=== PATIENT | female | born 1975 | race American Indian/Alaskan Native ===

== ENCOUNTER 2018-11-10 07:40 | Emergency (ER) | payer BC ==
[2018-11-10 07:59] VITALS: BP 126/79
--- NOTE | 2018-11-10 09:30 | Emergency Department Report ---
ED Female HPI - General Chief complaint: Vaginal Bleeding Stated complaint: POS MISCARRIAGE/ABD PAIN Time Seen by Provider: 11/10/18 08:34 Source: patient Mode of arrival: Ambulatory Limitations: No Limitations - History of Present Illness Initial comments: Patient is a 43-year-old 003 who presents to ED complaining of vaginal bleeding that began 2 days ago. Patient states that bleeding began with vaginal spotting and os, and has severe since then. Patient states that she took a test at home that was positive. Patient states last menstrual period was September. She admits some low pelvic cramping but no nausea, vomiting, dysur ia Complaint: vaginal bleeding - Related Data Previous Rx's Medication Instructions Recorded Last Taken Type Acetaminophen/Codeine [Tylenol 1 tab PO Q6H #12 tab 11/10/18 Unknown Rx /Codeine # 3 tab] Ibuprofen [Motrin] 800 mg PO Q8HR #30 tablet 11/10/18 Unknown Rx Allergies Allergy/AdvReac Type Severity Reaction Status Date / Time Penicillins Allergy Hives Verified 11/10/18 07:44 ED Review of Systems ROS: Stated complaint: POS MISCARRIAGE/ABD PAIN Other details as noted in HPI Comment: All other systems reviewed and negative ED Past Medical Hx - Past Medical History Previous Medical History?: No - Surgical History Past Surgical History?: Yes Additional Surgical History: C section, hernia repair, carpal tunnel release on both wrist. - Social History Smoking Status: Never Smoker Substance Use Type: None - Medications Home Medications: Home Medications Medication Instructions Recorded Confirmed Last Taken Type Acetaminophen/Codeine [Tylenol 1 tab PO Q6H #12 tab 11/10/18 Unknown Rx /Codeine # 3 tab] Ibuprofen [Motrin] 800 mg PO Q8HR #30 tablet 11/10/18 Unknown Rx ED Physical Exam - General Limitations: No Limitations General appearance: alert, in no apparent distress - Head Head exam: Present: atraumatic, normocephalic - Eye Eye exam: Present: normal appearance - ENT ENT exam: Present: mucous membranes moist - Neck Neck exam: Present: normal inspection - Respiratory Respiratory exam: Present: normal lung sounds bilaterally. Absent: respiratory distress - Cardiovascular Cardiovascular Exam: Present: regular rate, normal rhythm. Absent: systolic murmur, diastolic murmur, rubs, gallop - GI/Abdominal GI/Abdominal exam: Present: soft, tenderness (mildly tender to low pelvic region), normal bowel sounds. Absent: distended, mass - Extremities Exam Extremities exam: Present: normal inspection - Back Exam Back exam: Present: normal inspection - Neurological Exam Neurological exam: Present: alert, oriented X3 - Psychiatric Psychiatric exam: Present: normal affect, normal mood - Skin Skin exam: Present: warm, dry, intact, normal color. Absent: rash ED Course Vital Signs 11/10/18 11/10/18 07:55 10:55 Temperature 97.8 F Pulse Rate 85 Respiratory 20 17 Rate Blood Pressure 126/79 Blood Pressure 126/79 [Left] O2 Sat by Pulse 100 Oximetry ED Medical Decision Making - Lab Data Result diagrams: 11/10/18 08:31 - Radiology Data Radiology results: report reviewed, image reviewed Findings: Uterus measures 13.1 x 7.5 x 9.2 cm. Endometrial thickness 25 mm. No intrauterine gestation is seen. Right ovary 2.9 x 1.6 x 2.4 cm. Complex cyst measuring 2 cm right ovary. Left ovary 2.4 x 1.1 x 2.2 cm. No mass. No fluid in the cul-de-sac. Impression: Thick irregular endometrium. No intrauterine gestation. Complex cyst right ovary. Transcribed By: PTP Dictated By: IRLANDA BARAHONA MD Electronically Authenticated By: IRLANDA BARAHONA MD Signed Date/Time: 11/10/18 1053 - Medical Decision Making 29-year-old female presents to ED with completed ED course: Pt received ultra sound, CBC, urinalysis, test and quantitative ED All labs within normal limits, quantitative elevated as 1233 Discussed follow-up with [facility] for serial quant level checks. Vital signs normalized patient is in no acute distress. I discussed with the patient if follow-up with her [facility]. I discussed all labs and ultrasound findings with the patient. I discussed with the patient that he if bleeding worsens or new symptoms develop to return to ED immediately Critical care attestation.: If time is entered above; I have spent that time in minutes in the direct care of this critically ill patient, excluding procedure time. ED Disposition Clinical Impression: Spontaneous , Complete without complication Disposition: DC-01 TO HOME OR SELFCARE Is pt being admited?: No Does the pt Need Aspirin: No Condition: Stable Instructions: Spontaneous Miscarriage (ED) Additional Instructions: Make sure to follow up with the [facility] as discussed. Take all your medications as you've been prescribed. If you have any worsening symptoms or develop new symptoms please return to ED immediately. Prescriptions: Ibuprofen [Motrin] 800 mg PO Q8HR #30 tablet Acetaminophen/Codeine [Tylenol /Codeine # 3 tab] 1 tab PO Q6H #12 tab Referrals: FATOUMATA GUILLORY MD [Primary Care Provider] - 3-5 Days [facility] [Provider Group] - 3-5 Days [facility] [Provider Group] - 3-5 Days Forms: Work/School Release Form(ED) Time of Disposition: 11:31
[2018-11-10] MEDS ORDERED: TYLENOL #3 PO ONE (09:56)
[2018-11-10 09:57] LABS: Hematocrit 31.2 % (30.3-42.9); Hemoglobin 10.3 gm/dl (10.1-14.3); Mean Platelet Volume 8.5 fl (6-12); Red Blood Count 3.95 M/mm3 (3.65-5.03); Red Cell Distribution Width 14.8 % (13.2-15.2)
--- NOTE | 2018-11-10 11:13 | Ultrasound Report ---
Pelvic and transvaginal sonography: History: Vaginal bleeding. Findings: Uterus measures 13.1 x 7.5 x 9.2 cm. Endometrial thickness 25 mm. No intrauterine gestation is seen. Right ovary 2.9 x 1.6 x 2.4 cm. Complex cyst measuring 2 cm right ovary. Left ovary 2.4 x 1.1 x 2.2 cm. No mass. No fluid in the cul-de-sac. Impression: Thick irregular endometrium. No intrauterine gestation. Complex cyst right ovary.
== END 2018-11-10 11:44 | disposition home or self-care (01) ==
LOC: ED 07:40
DX: O03.9 Complete or unspecified spontaneous abortion without complication (principal)
CPT/HCPCS: 36415; 76801; 76817; 84702; 85027; 86900; 86901

== ENCOUNTER 2019-01-15 21:54 | Emergency (ER) | payer BC ==
[2019-01-16] MEDS ORDERED: TYLENOL PO ONE (03:14)
[2019-01-16] MEDS ORDERED: ZOFRAN ODT PO ONE (03:14)
[2019-01-16 03:27] LABS: Basophils # (Auto) 0.1 K/mm3 (0.0-0.1); Basophils % (Auto) 0.7 % (0.0-1.8); Eosinophils # (Auto) 0.7 K/mm3 (0.0-0.4); Eosinophils % (Auto) 9.2 % (0.0-4.3); Hematocrit 29.7 % (30.3-42.9); Hemoglobin 9.6 gm/dl (10.1-14.3); Lymphocytes # (Auto) 3.2 K/mm3 (1.2-5.4); Lymphocytes % (Auto) 39.8 % (13.4-35.0); Mean Corpuscular HGB Conc 32 % (30-34); Mean Corpuscular Volume 78 fl (79-97); Monocytes # (Auto) 0.6 K/mm3 (0.0-0.8); Monocytes % (Auto) 7.7 % (0.0-7.3); Platelet Count 411 K/mm3 (140-440); Red Blood Count 3.83 M/mm3 (3.65-5.03); Red Cell Distribution Width 15.4 % (13.2-15.2)
[2019-01-16 03:54] LABS: Bilirubin,Urine NEG (Negative); Blood,Urine LG (Negative); Color,Urine Yellow (Yellow); Urobilinogen,Urine < 2.0 mg/dL (<2.0)
[2019-01-16 03:58] LABS: Alanine Aminotransferase 12 units/L (7-56); Albumin 3.7 g/dL (3.9-5); BUN/Creatinine Ratio 11; Blood Urea Nitrogen 8 mg/dL (7-17); Calcium 8.7 mg/dL (8.4-10.2); Hemolysis Index 0
--- NOTE | 2019-01-16 04:21 | Emergency Department Report ---
ED Female HPI - General Chief complaint: Vaginal Bleeding Stated complaint: HEAVY VAGINAL BLEEDING Time Seen by Provider: 01/16/19 03:10 Source: patient Mode of arrival: Ambulatory Limitations: No Limitations - History of Present Illness Initial comments: Patient is a A4 AA with a history of chronic dysmenorrhea and who had a miscarriage 2 months ago, and just started her menstrual cycle 2 days ago presents to the ED with complaint of acute onset persistent severe suprapubic pain and history of vaginal bleeding with clots for the last 2 days. Patient states that in the last 8 hours she is on multiple blood clots and heavy bleeding, and has had to use plenty of pads. Patient states that when she sobered clots she decided to come to the ED to ascertain whether she was again or not. Patient states that she does not use any contraceptives. Patient denies fever, chills, nausea, vomiting, diarrhea, dizziness, lightheadedness, back pain, chest pain or shortness of breath, vaginal discharge or urinary frequency and urgency for dysuria. MD Complaint: vaginal bleeding, pelvic pain (suprapubic), other (dysmenorrhea) -: Sudden, days(s) (2) Location: suprapubic Radiation: non-radiating, suprapubic Severity: moderate Severity scale (0 -10): 4 Quality: cramping, sharp Consistency: constant Improves with: none Worsens with: urination, menstrual period Are you Now?: No Last Menstrual Period: 01/14/19 EDC: 10/21/19 Associated Symptoms: vaginal bleeding, abdominal pain (suprapubic). denies: vaginal discharge, nausea/vomiting, fever/chills, headaches, loss of appetite, dysuria, hematuria, rash, seizure, shortness of breath, syncope, weakness - Related Data Sexually active: No : 7 Para: 3 A: 4 Previous Rx's Medication Instructions Recorded Last Taken Type Acetaminophen/Codeine [Tylenol 1 tab PO Q6H #12 tab 11/10/18 Unknown Rx /Codeine # 3 tab] Ibuprofen [Motrin] 800 mg PO Q8HR #30 tablet 11/10/18 Unknown Rx Acetaminophen/Codeine [Tylenol 1 tab PO Q6H PRN #15 tab 01/16/19 Unknown Rx /Codeine # 3 tab] Naproxen 500 mg PO Q12H PRN #20 tablet 01/16/19 Unknown Rx Allergies Allergy/AdvReac Type Severity Reaction Status Date / Time Penicillins Allergy Hives Verified 11/10/18 07:44 ED Review of Systems ROS: Stated complaint: HEAVY VAGINAL BLEEDING Other details as noted in HPI Comment: All other systems reviewed and negative Constitutional: no symptoms reported, see HPI. denies: chills, diaphoresis, fever, malaise, weakness Eyes: as per HPI. denies: eye pain, eye discharge, vision change ENT: as per HPI. denies: ear pain, throat pain, dental pain, hearing loss, epistaxis, congestion Respiratory: no symptoms reported, see HPI. denies: cough, shortness of breath, SOB with exertion, SOB at rest, wheezing Cardiovascular: as per HPI. denies: chest pain, palpitations, dyspnea on exertion, orthopnea, edema, syncope, paroxysmal nocturnal dyspnea Endocrine: no symptoms reported, see HPI. denies: excessive sweating, flushing, increased hunger, increased thirst, increased urine, unexplained weight gain, unexplained weight loss Gastrointestinal: as per HPI, abdominal pain (suprapubic ). denies: nausea, vomiting, diarrhea, constipation, hematemesis, hematochezia Genitourinary: as per HPI, urgency. denies: frequency, hematuria, discharge, abnormal menses, dyspareunia, other Musculoskeletal: as per HPI, back pain. denies: joint swelling, arthralgia, myalgia Skin: as per HPI. denies: rash, lesions, change in color, change in hair/nails Neurological: as per HPI. denies: headache, weakness, numbness, paresthesias, confusion, abnormal gait, vertigo, other Psychiatric: as per HPI. denies: anxiety, depression, auditory hallucinations Hematological/Lymphatic: as per HPI ED Past Medical Hx - Past Medical History Previous Medical History?: No - Surgical History Past Surgical History?: Yes Additional Surgical History: C section, hernia repair, carpal tunnel release on both wrist. - Social History Smoking Status: Never Smoker Substance Use Type: None - Medications Home Medications: Home Medications Medication Instructions Recorded Confirmed Last Taken Type Acetaminophen/Codeine [Tylenol 1 tab PO Q6H #12 tab 11/10/18 Unknown Rx /Codeine # 3 tab] Ibuprofen [Motrin] 800 mg PO Q8HR #30 tablet 11/10/18 Unknown Rx Acetaminophen/Codeine [Tylenol 1 tab PO Q6H PRN #15 tab 01/16/19 Unknown Rx /Codeine # 3 tab] Naproxen 500 mg PO Q12H PRN #20 tablet 01/16/19 Unknown Rx ED Physical Exam - General Limitations: No Limitations General appearance: alert, in no apparent distress - Head Head exam: Present: atraumatic, normocephalic, normal inspection - Eye Eye exam: Present: normal appearance, PERRL, EOMI Pupils: Present: normal accommodation - ENT ENT exam: Present: normal exam, normal orophraynx, mucous membranes moist, TM's normal bilaterally, normal external ear exam - Neck Neck exam: Present: normal inspection. Absent: tenderness, full ROM, lymphadenopathy - Respiratory Respiratory exam: Present: normal lung sounds bilaterally. Absent: respiratory distress, wheezes, rales, rhonchi, chest wall tenderness, accessory muscle use, decreased breath sounds, prolonged expiratory - Cardiovascular Cardiovascular Exam: Present: regular rate, normal rhythm, normal heart sounds. Absent: bradycardia, tachycardia, systolic murmur, diastolic murmur - GI/Abdominal GI/Abdominal exam: Present: soft, tenderness (supraapubic). Absent: hyperactive bowel sounds, hypoactive bowel sounds, organomegaly - Extremities Exam Extremities exam: Present: normal inspection, full ROM, normal capillary refill - Back Exam Back exam: Present: normal inspection, full ROM. Absent: tenderness, CVA tenderness (R), CVA tenderness (L), muscle spasm, paraspinal tenderness, vertebral tenderness - Neurological Exam Neurological exam: Present: alert, oriented X3, CN II-XII intact, normal gait, reflexes normal - Psychiatric Psychiatric exam: Present: normal affect - Skin Skin exam: Present: warm, dry, intact, normal color ED Course Vital Signs 01/15/19 22:00 Temperature 98.1 F Pulse Rate 87 Respiratory 18 Rate Blood Pressure 122/78 O2 Sat by Pulse 100 Oximetry - Reevaluation(s) Reevaluation #1: 01/16/19 04:26 Patient is alert and oriented 3 and is not in distress. Labs were drawn and patient was treated for pain. Lab test results were reviewed and are unremarkable. Patient's symptoms are likely due to dysmenorrhea and metrorrhagia. Patient historically has not been on any control. On reevaluation, patient's pain is well controlled on medications, patient was discharged home on medications and advised to follow-up with [facility] physician in 2-3 days for reevaluation or return to the ED immediately if symptoms get worse. ED Medical Decision Making - Lab Data Result diagrams: 01/16/19 03:16 01/16/19 03:16 - Medical Decision Making Patient is alert and oriented 3 and is not in distress. Labs were drawn and patient was treated for pain. Lab test results were reviewed and are unremarkable. Patient's symptoms are likely due to dysmenorrhea and metrorrhagia. Patient historically has not been on any control. On reevaluation, patient's pain is well controlled on medications, patient was discharged home on medications and advised to follow-up with [facility] physician in 2-3 days for reevaluation or return to the ED immediately if symptoms get worse. - Differential Diagnosis Dysmenorrhea, Metrorrhagia, Acute UTI, , miscarriage Critical care attestation.: If time is entered above; I have spent that time in minutes in the direct care of this critically ill patient, excluding procedure time. ED Disposition Clinical Impression: Dysmenorrhea, Metrorrhagia, Pelvic pain Disposition: TO HOME OR SELFCARE Is pt being admited?: No Does the pt Need Aspirin: No Condition: Stable Instructions: Dysfunctional Uterine Bleeding (ED), Menorrhagia (ED), Dysmenorrhea (ED) Additional Instructions: Take medications for pain as needed with food, drink plenty of fluids and follow up with your [facility] physician within 2-3 days for reevaluation. Return to the ED immediately if symptoms get worse. Prescriptions: Naproxen 500 mg PO Q12H PRN #20 tablet PRN Reason: Pain , Severe (7-10) Acetaminophen/Codeine [Tylenol /Codeine # 3 tab] 1 tab PO Q6H PRN #15 tab PRN Reason: Pain , Severe (7-10) Referrals: FLASH ZAMBRANO MD [Primary Care Provider] - 3-5 Days Time of Disposition: 04:36 Print Language: KOREAN
[2019-01-16 04:36] VITALS: BP 168/92
== END 2019-01-16 04:36 | disposition home or self-care (01) ==
LOC: ED 21:54
DX: N94.6 Dysmenorrhea, unspecified (principal); N92.1 Excessive and frequent menstruation with irregular cycle
CPT/HCPCS: 36415; 80053; 81001; 83690; 84703; 85025; Q0162

== ENCOUNTER 2020-09-11 06:02 | Day surgery (SDC) | payer BC ==
[~2020-09-11 06:02] MED LIST: ACETAMINOPHEN 500 MG TAB PO SCH; CELECOXIB 200 MG CAP PO NR; GABAPENTIN 300 MG CAP PO NR; LACTATED RINGERS 1,000 ML IV SCH; MIDAZOLAM 2 MG/2 ML INJ IV NR; SCOPOLAMINE TRANSDERMAL PATCH 72 HR TD NR
[2020-09-11] MEDS ORDERED: LIDOCAINE (1%) 10 MG/1 ML VIAL 20 ML MDV ONE (07:13)
[2020-09-11] MEDS ORDERED: SODIUM CHLORIDE 0.9% 0 ML ONE (07:13)
[2020-09-11] MEDS ORDERED: BUPIVACAINE/PF (0.5%) 5 MG/1 ML 30 ML VIAL INFILTRATI ONE ×2 (07:13→09:24)
[2020-09-11] MEDS ORDERED: ONDANSETRON 4 MG/2 ML INJ IV PRN (07:29)
[2020-09-11] MEDS ORDERED: HYDROmorphone 1 MG/1 ML INJ IV PRN (07:29)
--- NOTE | 2020-09-11 07:39 | Anesthesia Consultation ---
Anesthesia Consult and Med Hx Date of service: 09/11/20 - Airway Anesthetic Teeth Evaluation: Good ROM Head & Neck: Adequate Mental/Hyoid Distance: Adequate Mallampati Class: Class II Intubation Access Assessment: Probably Good - Pre-Operative Health Status ASA Pre-Surgery Classification: ASA2 Proposed Anesthetic Plan: General - Central Nervous System Hx Psychiatric Problems: No - Endocrine Hx Liver Disease: Yes (gallbladder disease) - Hematic Hx Anemia: Yes - Other Systems Hx Cancer: No Hx Obesity: Yes (BMI 32.6)
--- NOTE | 2020-09-11 07:40 | Anesthesia Day of Surgery ---
Anesthesia Day of Surgery - Day of Surgery Patient Examined: Yes Patient H&P Reviewed: Yes Patient is NPO: Yes
[2020-09-11] MEDS ORDERED: HYDROmorphone 1 MG/1 ML INJ ONE (07:46)
[2020-09-11] MEDS ORDERED: propofoL 200 MG/20 ML VIAL IV ONE (07:46)
[2020-09-11] MEDS ORDERED: VANCOMYCIN/NS 1 GM/250 ML 1 GM/250 ML BAG IV NR (08:00)
[2020-09-11] MEDS ORDERED: WATER FOR IRRIG STERILE 1,500 ML BOTTLE IR ONE (09:24)
[2020-09-11] MEDS ORDERED: LIDOCAINE (1%) 10 MG/1 ML VIAL 20 ML MDV INFILTRATI ONE (09:25)
[2020-09-11] MEDS ORDERED: LIDOCAINE MPF (2%) 20 MG/1 ML VIAL 5 ML ONE (09:47)
[2020-09-11] MEDS ORDERED: ROCURONIUM 50 MG/5 ML INJ IV ONE (09:47)
[2020-09-11] MEDS ORDERED: KETOROLAC 30 MG/1 ML INJ ONE (09:50)
[2020-09-11] MEDS ORDERED: GLYCOPYRROLATE 0.4 MG/2 ML INJ ONE (09:50)
[2020-09-11] MEDS ORDERED: NEOSTIGMINE 10MG/10 ML INJ MDV ONE (09:50)
[2020-09-11] MEDS ORDERED: ONDANSETRON 4 MG/2 ML INJ ONE (09:50)
--- NOTE | 2020-09-11 10:06 | Short Stay Summary ---
Short Stay Documentation Date of service: 09/11/20 - History H&P: obtained from office - Allergies and Medications Current Medications: Allergies Penicillins Allergy (Verified 09/06/20 08:30) Hives Home Medications Medication Instructions Recorded Confirmed Last Taken Type Ferrous Sulfate [Feosol] 325 mg PO BID 09/06/20 09/06/20 Unknown History Ibuprofen [Motrin] 800 mg PO Q8HR PRN 09/06/20 09/06/20 Unknown History Active Medications Acetaminophen (Acetaminophen 500 Mg Tab) 1,000 mg PO PREOP PIERCE Stop: 09/11/20 20:00 Celecoxib (Celecoxib 200 Mg Cap) 200 mg PO PREOP NR Stop: 09/11/20 20:00 Gabapentin (Gabapentin 300 Mg Cap) 300 mg PO PREOP NR Stop: 09/11/20 20:00 Hydromorphone HCl (Hydromorphone 1 Mg/1 Ml Inj) 0.25 mg IV Q10MIN PRN PRN Reason: Pain, Moderate (4-6) Stop: 09/11/20 23:00 Lactated Ringer's (Lactated Ringers) 1,000 mls @ 100 mls/hr IV DIRECT PIERCE Stop: 09/11/20 23:59 Midazolam HCl (Midazolam 2 Mg/2 Ml Inj) 2 mg IV PREOP NR Stop: 09/11/20 20:00 Ondansetron HCl (Ondansetron 4 Mg/2 Ml Inj) 4 mg IV ONCE PRN PRN Reason: Nausea And Vomiting Stop: 09/11/20 12:00 Scopolamine (Scopolamine Transdermal Patch 72 Hr) 1 each TD PREOP NR Stop: 09/11/20 20:00 - Brief post op/procedure progress note Date of procedure: 09/11/20 Pre-op diagnosis: cholelithiasis, symptomatic Post-op diagnosis: same Procedure: laparoscopic cholecystectomy Anesthesia: GETA, local Findings: Thickened gallbladder with medium sized stone at neck Surgeon: THOR NEGRO Estimated blood loss: minimal Pathology: list (gallbladder) Specimen disposition: to lab Condition: stable - Hospital course Hospital course: Pt observed in PACU and discharged to home in stable condition. - Disposition Condition at discharge: Good Disposition: DC-01 TO HOME OR SELFCARE Short Stay Discharge Plan Activity: other (no heavy lifting more than 15 lbs for next 2 weeks) Wound: open to air, per your surgeon's advice Additional Instructions: see printed instructions Follow up with: DR SMITA [Other] - 7 Days THOR NEGRO DO [Staff Physician] - 14 Days Prescriptions: oxyCODONE /ACETAMINOPHEN [Percocet 5/325] 1 tab PO Q4HR PRN #30 tab PRN Reason: Pain , Severe (7-10)
[2020-09-11] MEDS ORDERED: oxyCODONE /ACETAMINOPHEN 5-325MG TAB PO PRN (10:14)
--- NOTE | 2020-09-11 10:42 | Operative Report ---
Operative Report Operative Report: Date of procedure: 09/11/20 Pre-op diagnosis: cholelithiasis, symptomatic Post-op diagnosis: same Procedure: laparoscopic cholecystectomy Anesthesia: GETA, local Findings: Thickened gallbladder with medium sized stone at neck Surgeon: THOR NEGRO Estimated blood loss: minimal Pathology: list (gallbladder) Specimen disposition: to lab Condition: stable Hospital course: Pt observed in PACU and discharged to home in stable condition. HPI an indication: 45-year-old female who was referred to the surgery clinic for evaluation of gallstones. The patient was found to have symptomatic cholelithiasis. All pertinent imaging and laboratory data were reviewed. It was recommended that the patient undergo cholecystectomy. All risk, benefits, alternatives to surgery were discussed with patient questions answered. Consent was obtained. Procedure in detail: The patient was identified in the preoperative area and taken back to the operating room, placed on the operating room table in supine position. After anesthesia was induced, the abdomen was prepped and draped in usual sterile fashion and timeout was performed. Local anesthetic was infiltrated into all of the skin incision sites. A daiana incision was made in the left upper quadrant at Koehler's point through which a Veress needle was inserted. The Veress needle position was confirmed using the saline drop test and the abdomen insufflated to 15 mmHg without incident. Using an 11 blade a supraumbilical incision was made and through this a 5 mm optiview trocar placed. The abdomen was then inspected and there was no underlying injury to any of the abdominal contents. The veress needle was removed. An additional 12 mm subxyphoid port, and 2, 5mm RUQ ports were then placed under direct visualization. The patient was then placed into reverse Trendelberg and tilted to the left. The gallbladder was visualized and was partially obscured by omental adhesions. The gallbladder fundus was grasped and retracted cephalad. The omental adhesions were dissected from the gallbladder using hook electrocautery. The cystic duct and artery were then carefully dissected and the critical view obtained, and the cystic duct and artery were the only two structures seen entering the gallbladder. Three clips were then placed on the proximal aspect of the cystic duct and one clip distally, and 2 clips on the cystic artery proximally and one distal. The cystic duct and cystic artery were then transected in between the clips using endoshears. The gallbladder was dissected from the liver bed using hook electrocautery. The gallbladder was mil dly thickened. The gallbladder was placed into a Endo Catch bag and removed from the abdomen via the 12mm port. The gallbladder fossa was then inspected and there was no identifiable bleeding or bile leakage. Hemostasis was ensured. The clips on the cystic duct and artery were visualized and intact. The patient was then placed into neutral position. The 12 mm port fascia was closed with an interrupted 0 Vicryl suture using the Jose Arciniega device. The remaining ports were removed under direct visualization and the abdomen desufflated. Skin incisions were closed with 4-0 Monocryl subcuticular stitches and skin glue. All skin incisions were once again infiltrated with local anesthetic. The gallbladder was examined on the back table. Only one tubular structure was seen entering into the gallbladder, clip was removed and bile expressed. There was a medium sized stone at the neck. At the end case all sponge, instrument, sharp counts were correct 2. The patient was awoken from anesthesia, extubated, taken to PACU in stable condition.
--- NOTE | 2020-09-11 11:10 | Post Anesthesia Evaluation ---
- Post Anesthesia Evaluation Patient Participated: Yes Airway Patent: Yes Stable Respiratory Function: Yes Nausea/Vomiting: No Temp > 96.8F: Yes Pain Manageable: Yes Adequeate Hydration: Yes Anesthesia Complications: No
[2020-09-11 11:14] VITALS: BP 110/74
== END 2020-09-11 11:35 | disposition home or self-care (01) ==
LOC: OR 06:02
PROVIDERS: ATTEND Surgery
DX: K80.10 Calculus of gallbladder with chronic cholecystitis without obstruction (principal); K21.9 Gastro-esophageal reflux disease without esophagitis; E66.9 Obesity, unspecified; D64.9 Anemia, unspecified; Z98.890 Other specified postprocedural states; Z88.0 Allergy status to penicillin; Z79.899 Other long term (current) drug therapy; Z98.891 History of uterine scar from previous surgery; Z87.440 Personal history of urinary (tract) infections; Z87.442 Personal history of urinary calculi
CPT/HCPCS: 47562; 81025; 88304; J1170; J1885; J2250; J2405; J2704; J2710; J3370; J7120